=== PATIENT | male | born 1965 | race Caucasian/White ===

== ENCOUNTER 2019-08-26 14:30 | Emergency (ER) | payer MEDICAID ==
[~2019-08-26] VITALS: Ht 188 cm; Wt 122.5 kg
[2019-08-26 14:57] VITALS: BP 111/83
--- NOTE | 2019-08-26 15:02 | NUR ---
FAITH TRAMMELL. SENT TO LOB, AWAITING BED IN ED. VSS.
--- NOTE | 2019-08-26 16:23 | NUR ---
Pt taken to bed 9.
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
[2019-08-26] MEDS ORDERED: cefTRIAXone 1,000 MG in LIDOCAINE MPF 1% 2.1 ML IM ONE (17:10)
[2019-08-26 17:45] VITALS: BP 111/83
--- NOTE | 2019-08-26 17:45 | NUR ---
Patient discharged with v/s stable. Written and verbal after care instructions given and explained. Patient alert, oriented and verbalized understanding of instructions. Ambulatory with steady gait. All questions addressed prior to discharge. ID band removed. Patient advised to follow up with PMD. Rx of Bactrim DS and Keflex 500mg given. Patient educated on indication of medication including possible reaction and side effects. Opportunity to ask questions provided and answered.
== END 2019-08-26 17:45 | disposition home or self-care (01) ==
LOC: MED 14:30
DX: L03.113 Cellulitis of right upper limb (principal); E11.9 Type 2 diabetes mellitus without complications; I10 Essential (primary) hypertension
CPT/HCPCS: 73130; 96372; 99283; J0696; J2001